=== PATIENT | female | born 1980 | race American Indian/Alaskan Native ===

== ENCOUNTER → 2019-02-17 | Day surgery (SDC) | payer OTHER ==
[~2019-02-17] MED LIST: ADDERALL 30 MG30 MG PO; FENTANYL CITRATE/PF 100MCG/2 ML INJ ONE; GLUCAGON FOR INJ 1 MG VIAL ONE; HYOSCYAMINE SULFATE 0.5 MG/ML INJ ONE; LIDOCAINE HCL 2% LOCAL INJ 5 ML SDV VIAL INJ ONE; MIDAZOLAM HCL 2 MG/2 ML VIAL ONE; PROPOFOL IV EMULSION 10 MG/ML 50 ML VIAL ONE
--- OUTSIDE RECORDS SUMMARY | 2019-02-17 08:37 | XMS REPORT | Clinical Summary ---
Author Author [facility] Organization [facility] Address Unknown Phone Unavailable Care Team Providers Care After School Coordinator Name Role Phone Benton Oliver MD PCP Allergies No Known Allergies Medications End Date Status Medication Sig Dispensed Refills Start Date Active NUVARING 0.12-0.015 mg/24 0.12 mg every 3 hr vaginal ring 28 days. 8 Active dextroamphetamine-ampheta 1 tablet 2 0 mine (ADDERALL) 30 mg (two) times a 8 tablet day. Active cyanocobalamin 1,000 1,000 mcg 3 mcg/mL injection once a week. 8 Active Problems Problem Noted Date Memory loss 04/12/2018 Chronic daily headache 04/12/2018 Chronic migraine without aura without status migrainosus, not intractable 04/12/2018 Paresthesias 04/12/2018 Class 1 obesity due to excess calories without serious comorbidity in adult 04/12/2018 B12 deficiency 04/12/2018 Encounters Care Team Description Date Type Specialty Pedro White MD Intervertebral disc disorder with radiculopathy of lumbosacral region 10/31/2018 Hospital Radiology Encounter Pedro White MD Intervertebral disc disorder with radiculopathy of lumbosacral region (Primary Dx) 10/13/2018 Transcribe Access Orders Alyssia Trinidad MD Paresthesia; Nonintractable headache, unspecified chronicity pattern, unspecified headache type; Cognitive change; Left leg pain 10/09/2018 Hospital Radiology Encounter Alyssia Trinidad MD Paresthesia; Nonintractable headache, unspecified chronicity pattern, unspecified headache type; Cognitive change; Left leg pain 10/03/2018 Hospital Radiology Encounter Alyssia Trinidad MD Neck pain; Paresthesia 10/03/2018 Hospital Radiology Encounter Alyssia Trinidad MD Paresthesia (Primary Dx); Nonintractable headache, unspecified chronicity pattern, unspecified headache type; Cognitive change; Left leg pain 09/13/2018 Transcribe Access Orders Alyssia Trinidad MD Neck pain (Primary Dx); Paresthesia 08/15/2018 Transcribe Access Orders Seema Zavala MD 05/13/2018 Telephone Neurology Haven Melton MD Left cervical radiculopathy; Lumbar radiculopathy 05/12/2018 Procedure visit Neurology Benton Oliver MD Neck pain (Primary Dx); Muscle spasms of lower extremity, unspecified laterality 04/26/2018 Transcribe Access Orders Seema Zavala MD 04/20/2018 Telephone Neurology Seema Zavala MD Memory loss; Chronic daily headache; Chronic migraine without aura without status migrainosus, not intractable 04/18/2018 Hospital Radiology Encounter Seema Zavala MD Memory loss (Primary Dx); B12 deficiency; Chronic daily headache; Chronic migraine without aura without status migrainosus, not intractable; Paresthesias; Class 1 obesity due to excess calories without serious comorbidity with body mass index (BMI) of 31.0 to 31.9 in adult 04/12/2018 Office Visit Neurology after 02/16/2018 Family History Medical History Relation Name Comments Diabetes Father Heart disease Father Hypertension Father Relation Name Status Comments Father Alive Mother Alive Social History Date Tobacco Use Types Packs/Day Years Used Quit: 2007 Former Smoker Smokeless Tobacco: Never Used Alcohol Use Drinks/Week oz/Week Comments No Sex Assigned at Date Recorded Not on file Industry Job Start Date Occupation Not on file Not on file Not on file Travel End Travel History Travel Start No recent travel history available. Last Filed Vital Signs Time Taken Vital Sign Reading 05/12/2018 12:47 PM CDT Blood Pressure 106/74 04/12/2018 1:14 PM CDT Pulse 101 - Temperature - - Respiratory Rate - - Oxygen Saturation - - Inhaled Oxygen - Concentration 05/12/2018 12:47 PM CDT Weight 74.5 kg (164 lb 3.2 oz) 05/12/2018 12:47 PM CDT Height 154.9 cm (5' 1") 05/12/2018 12:47 PM CDT Body Mass Index 31.03 Plan of Treatment Health Maintenance Due Date Last Done Comments CERVICAL CANCER SCREENING 2000 INFLUENZA VACCINE 05/25/2019 Procedures Comments Procedure Name Priority Date/Time Associated Diagnosis CT LUMBAR SPINE WO Routine 10/31/2018 Intervertebral disc CONTRAST 5:20 PM [employer] disorder with radiculopathy of lumbosacral region MRI LUMBAR SPINE WO Routine 10/09/2018 Paresthesia CONTRAST 1:12 PM [employer]LY[employer] Nonintractable headache, unspecified chronicity pattern, unspecified headache type Cognitive change Left leg pain MRI BRAIN W WO CONTRAST Routine 10/03/2018 Paresthesia 7:25 PM [employer]ING [employer]LYST Nonintractable headache, unspecified chronicity pattern, unspecified headache type Cognitive change Left leg pain MRI CERVICAL SPINE W WO Routine 10/03/2018 Neck pain CONTRAST 7:13 PM [employer]ING [employer]LYST Paresthesia ESTIMATED GFR Routine 10/03/2018 5:54 PM [employer]ETING FIN[employer]CIAL ANALYST POC CREATININE Routine 10/03/2018 5:54 PM [employer]ETING FIN[employer]CIAL ANALYST MRI BRAIN WO CONTRAST Routine 04/18/2018 Memory loss 6:11 PM CDT Chronic daily headache Chronic migraine without aura without status migrainosus, not intractable after 02/16/2018 Results * CT Lumbar Spine Wo Contrast (10/31/2018 5:20 PM MARKETING FINANCIAL ANALYST) Narrative Performed At EXAMINATION:CT LUMBAR SPINE WO CONTRAST [facility] CLINICAL HISTORY:M51.17 Intervertebral disc disorders with radiculopathylumbosacral region, INTERVEBRAL DIS DISORDERS W RADICULOPATHY COMPARISON:None. TECHNIQUE: Axial helical CT images throughout the lumbar spine were performed without IV contrast. Sagittal and coronal reformatted images were generated. All CT images were acquired using low-dose technique with automated exposure control. FINDINGS: There is no evidence of acute fracture, subluxation, or dislocation. There is normal lumbar lordosis and alignment. Vertebral bodies are preserved. There is no evidence of paraspinal hematoma. L5-S1 level: There is central large disc protrusion causing moderate severe canal stenosis with severe bilateral lateral recess narrowing him potential compromise of the traversing bilateral S1 nerve roots. There is no foraminal narrowing. Mild disc bulges are appreciated at L4-L5 and L3-L4 levels. Visualized paraspinal soft tissues are unremarkable. IMPRESSION: No acute lumbar spine bony abnormality. Large central disc protrusion at L5-S1 level with associated moderate severe canal stenosis and severe bilateral lateral recess narrowing with potential compromise of the bilateral traversing S1 nerve roots. Further evaluation with MRI of the lumbar spine is recommended. [facility]-[id number] Procedure Note Interface, Radiology Results Incoming - 10/31/2018 8:02 PM MARKETING FINANCIAL ANALYST EXAMINATION: CT LUMBAR SPINE WO CONTRAST CLINICAL HISTORY: M51.17 Intervertebral disc disorders with radiculopathy lumbosacral region, INTERVEBRAL DIS DISORDERS W RADICULOPATHY COMPARISON: None. TECHNIQUE: Axial helical CT images throughout the lumbar spine were performed without IV contrast. Sagittal and coronal reformatted images were generated. All CT images were acquired using low-dose technique with automated exposure control. FINDINGS: There is no evidence of acute fracture, subluxation, or dislocation. There is normal lumbar lordosis and alignment. Vertebral bodies are preserved. There is no evidence of paraspinal hematoma. L5-S1 level: There is central large disc protrusion causing moderate severe canal stenosis with severe bilateral lateral recess narrowing him potential compromise of the traversing bilateral S1 nerve roots. There is no foraminal narrowing. Mild disc bulges are appreciated at L4-L5 and L3-L4 levels. Visualized paraspinal soft tissues are unremarkable. IMPRESSION: No acute lumbar spine bony abnormality. Large central disc protrusion at L5-S1 level with associated moderate severe canal stenosis and severe bilateral lateral recess narrowing with potential compromise of the bilateral traversing S1 nerve roots. Further evaluation with MRI of the lumbar spine is recommended. [facility]-[id number] Performing Organization Address City/State/Zipcode Phone Number [facility] [address] [place] [address] * MRI Lumbar Spine Wo Contrast (10/09/2018 1:12 PM MARKETING FINANCIAL ANALYST) Narrative Performed At EXAMINATION: MRI LUMBAR SPINE WO CONTRAST [facility] CLINICAL HISTORY: R20.2 Paresthesia of skin, R51 Headache, PARASTHEISA OF ARM HEADACHECOGNITIVE CHANGESL LEG PAIN COMPARISON:None TECHNIQUE: Multiplanar multisequence noncontrast enhanced examination was performed of the Lumbar spine. FINDINGS: Vertebral body heights are maintained without acute fracture. No focal significant marrow signal abnormality is appreciated. Soft tissues shows no mass, adenopathy or aneurysm. The partially visualized spinal cord and the conus are unremarkable. Lumbar spine alignment is grossly preserved with normal lordosis without significant subluxation. Axial images through the disc spaces demonstrate the following: L1-L2: No significant posterior disc disease, spinal canal or neural foraminal stenosis. L2-L3: No significant posterior disc disease, spinal canal or neural foraminal stenosis. L3-L4: There is minimal disc bulge and 1 mm retrolisthesis of L3 without stenosis. L4-L5: There is mild disc desiccation with disc bulge and facet hypertrophy with mild narrowing of the thecal sac and lateral recesses. There is minimal indentation of the inferior foramina without stenosis. L5-S1: There is loss of disc height with disc desiccation and a very large posterior central disc protrusion. There is some superior extrusion as well. The AP dimension of the protruded disc fragment measures 9 mm in transverse dimensions 18 mm. The superior-inferior dimension of the protrusion and extrusion measures 12 mm. There is severe narrowing of the thecal sac to 3 mm with flattening of the nerve roots and thecal sac. There is complete effacement of the lateral recesses likely encroaching significantly on the bilateral S1 nerves. Despite the severe canal and lateral recess stenosis there is only mild bilateral foraminal narrowing. Visualized lateral sacrum is intact without acute osseous abnormality IMPRESSION: There is a large posterior disc protrusion at L5-S1 resulting in severe canal lateral recess narrowing with mass effect on the nerve roots, especially the S1 nerves. Recommend surgical consultation. [facility]-[id number] Procedure Note Hm Interface, Radiology Results Incoming - 10/09/2018 1:19 PM [employer]ETING [employer]CIAL ANALYST EXAMINATION: MRI LUMBAR SPINE WO CONTRAST CLINICAL HISTORY: R20.2 Paresthesia of skin, R51 Headache, PARASTHEISA OF ARM HEADACHE COGNITIVE CHANGES L LEG PAIN COMPARISON: None TECHNIQUE: Multiplanar multisequence noncontrast enhanced examination was performed of the Lumbar spine. FINDINGS: Vertebral body heights are maintained without acute fracture. No focal significant marrow signal abnormality is appreciated. Soft tissues shows no mass, adenopathy or aneurysm. The partially visualized spinal cord and the conus are unremarkable. Lumbar spine alignment is grossly preserved with normal lordosis without significant subluxation. Axial images through the disc spaces demonstrate the following: L1-L2: No significant posterior disc disease, spinal canal or neural foraminal stenosis. L2-L3: No significant posterior disc disease, spinal canal or neural foraminal stenosis. L3-L4: There is minimal disc bulge and 1 mm retrolisthesis of L3 without stenosis. L4-L5: There is mild disc desiccation with disc bulge and facet hypertrophy with mild narrowing of the thecal sac and lateral recesses. There is minimal indentation of the inferior foramina without stenosis. L5-S1: There is loss of disc height with disc desiccation and a very large posterior central disc protrusion. There is some superior extrusion as well. The AP dimension of the protruded disc fragment measures 9 mm in transverse dimensions 18 mm. The superior-inferior dimension of the protrusion and extrusion measures 12 mm. There is severe narrowing of the thecal sac to 3 mm with flattening of the nerve roots and thecal sac. There is complete effacement of the lateral recesses likely encroaching significantly on the bilateral S1 nerves. Despite the severe canal and lateral recess stenosis there is only mild bilateral foraminal narrowing. Visualized lateral sacrum is intact without acute osseous abnormality IMPRESSION: There is a large posterior disc protrusion at L5-S1 resulting in severe canal lateral recess narrowing with mass effect on the nerve roots, especially the S1 nerves. Recommend surgical consultation. [facility]-[id number] Performing Organization Address City/State/Zipcode Phone Number [facility] [address] [place] [address] * MRI Brain W Wo Contrast (10/03/2018 7:25 PM MARKETING FIN[employer]CIAL ANALYST) Narrative Performed At EXAMINATION:MRI BRAIN W WO CONTRAST [facility] CLINICAL HISTORY:R20.2 Paresthesia of skin, R51 Headache, PARESTHESIA OF ARMCOGNITIVE CHANGESHEADACHEL LEG PAIN COMPARISON:MRI brain April 18, 2018. FINDINGS: 1. Diffusion images demonstrate no evidence of acute ischemia. 2.Conventional images demonstrate no microvascular white matter changes. There is no volume loss. There is no abnormal contrast enhancement. There is minimal cerebellar tonsillar ectopia which is well within normal limits. 3.There is minimal mucosal thickening in the ethmoid sinus. IMPRESSION: No significant abnormality demonstrated nor change from the prior study. [facility]-[id number] Procedure Note Interface, Radiology Results Incoming - 10/03/2018 7:48 PM MARKETING FIN[employer]CIAL ANALYST EXAMINATION: MRI BRAIN W WO CONTRAST CLINICAL HISTORY: R20.2 Paresthesia of skin, R51 Headache, PARESTHESIA OF ARM COGNITIVE CHANGES HEADACHE L LEG PAIN COMPARISON: MRI brain April 18, 2018. FINDINGS: 1. Diffusion images demonstrate no evidence of acute ischemia. 2. Conventional images demonstrate no microvascular white matter changes. There is no volume loss. There is no abnormal contrast enhancement. There is minimal cerebellar tonsillar ectopia which is well within normal limits. 3. There is minimal mucosal thickening in the ethmoid sinus. IMPRESSION: No significant abnormality demonstrated nor change from the prior study. [id number] Performing Organization Address City/State/Zipcode Phone Number [facility] [address] [place] [address] * MRI Cervical Spine W Wo Contrast (10/03/2018 7:13 PM MARKETING FINANCIAL ANALYST) Narrative Performed At EXAMINATION:MRI CERVICAL SPINE W WO CONTRAST [facility] CLINICAL HISTORY:M54.2 Cervicalgia, R20.2 Paresthesia of skin, PARESTHESIA OF ARM COMPARISON:None. FINDINGS: These study is somewhat compromised because of image degradation related to patient motion. There is however no signal abnormality demonstrated in the spinal cord and there is no abnormal contrast enhancement. There is minimal cervical spondylosis. There is a broad dorsal disc protrusion on the left at C5-6 minimally contacting the ventral surface of the spinal cord. There is a suggestion of slight spinal cord volume loss on the left but there isminimal (10 mm) canal stenosis without cord compression. There is a minimal posterior lateral disc protrusion on the left at C6-7 without the canal stenosis or cord compression. There is minimal extension into the neural foramen on the left. There is no significant foraminal stenosis. There is no evidence of Chiari malformation. IMPRESSION: 1.Suboptimal examination because of image degradation related patient motion. 2.No evidence of a cervical spinal cord lesion. 3.Minimal cervical spondylosis and small disc herniations on the left at C5-6 and C6-7 without significant stenosis. [facility]-[id number] Procedure Note Interface, Radiology Results Incoming - 10/03/2018 8:47 PM MARKETING FINANCIAL ANALYST EXAMINATION: MRI CERVICAL SPINE W WO CONTRAST CLINICAL HISTORY: M54.2 Cervicalgia, R20.2 Paresthesia of skin, PARESTHESIA OF ARM COMPARISON: None. FINDINGS: These study is somewhat compromised because of image degradation related to patient motion. There is however no signal abnormality demonstrated in the spinal cord and there is no abnormal contrast enhancement. There is minimal cervical spondylosis. There is a broad dorsal disc protrusion on the left at C5-6 minimally contacting the ventral surface of the spinal cord. There is a suggestion of slight spinal cord volume loss on the left but there is minimal (10 mm) canal stenosis without cord compression. There is a minimal posterior lateral disc protrusion on the left at C6-7 without the canal stenosis or cord compression. There is minimal extension into the neural foramen on the left. There is no significant foraminal stenosis. There is no evidence of Chiari malformation. IMPRESSION: 1. Suboptimal examination because of image degradation related patient motion. 2. No evidence of a cervical spinal cord lesion. 3. Minimal cervical spondylosis and small disc herniations on the left at C5-6 and C6-7 without significant stenosis. [id number] Performing Organization Address [facility] Phone Number [facility] [address] [place] [address] * Estimated GFR (10/03/2018 5:54 PM MARKETING FINANCIAL ANALYST) Estimated GFR >=90 mL/min/1.73 m2 [facility] Comment: [facility] CatergoryUnitsInte rpretation G1 >=90 Normal or high G2 60-89Mildly decreased [id number] Mildly to moderately decreased [id number] Moderately to severely decreased G4 15-29Severely decreased G5 <15Kidney failure The eGFR was calculated using the Chronic Kidney Disease Epidemiology Collaboration (CKD-EPI) equation. Interpretation is based on recommendations of the National Kidney Foundation-Kidney Disease Outcomes Quality Initiative (NKF-KDOQI) published in 2014. Specimen Blood Performing Organization Address [facility] Phone Number [facility] [address] [place] [address] PATHOLOGY AND GENOMIC MEDICINE [address] * POC creatinine (10/03/2018 5:54 PM MARKETING FINANCIAL ANALYST) POC creatinine 0.8 0.5 - 0.9 mg/dl [facility] Specimen Blood Performing Organization Address [facility] Phone Number [facility] [place] [address] PATHOLOGY AND GENOMIC MEDICINE [address] [place] [address] [facility] * MRI Brain Wo Contrast (04/18/2018 6:11 PM CDT) Narrative Performed At EXAM: MRI BRAIN WO CONTRAST [facility] CLINICAL HISTORY: R41.3 Other amnesia, R51 Headache, Headachechronicnormal neuro exam, Chronic daily headache with increase in frequency. TECHNIQUE: Multiplanar and multisequence MRI imaging of the brain was obtained without contrast. COMPARISON:None. FINDINGS: No diffusion restriction to suggest acute infarct. Parenchymal volume is within normal limits. No acute intracranial hemorrhage, mass, hydrocephalus, or extra-axial fluid collection identified. Although this examination is not optimized for the sella, pituitary is grossly normal in appearance. Midline structures are maintained. The major flow voids in the skull base are identified. Orbits are unremarkable. Paranasal sinuses are clear. Mastoid air cells are normally pneumatized. IMPRESSION: No acute intracranial abnormality identified. [id number] Procedure Note Hm Interface, Radiology Results Incoming - 04/18/2018 6:47 PM CDT EXAM: MRI BRAIN WO CONTRAST CLINICAL HISTORY: R41.3 Other amnesia, R51 Headache, Headache chronic normal neuro exam, Chronic daily headache with increase in frequency. TECHNIQUE: Multiplanar and multisequence MRI imaging of the brain was obtained without contrast. COMPARISON: None. FINDINGS: No diffusion restriction to suggest acute infarct. Parenchymal volume is within normal limits. No acute intracranial hemorrhage, mass, hydrocephalus, or extra-axial fluid collection identified. Although this examination is not optimized for the sella, pituitary is grossly normal in appearance. Midline structures are maintained. The major flow voids in the skull base are identified. Orbits are unremarkable. Paranasal sinuses are clear. Mastoid air cells are normally pneumatized. IMPRESSION: No acute intracranial abnormality identified. [facility]-[id number] Performing Organization Address City/State/Zipcode Phone Number [facility] [address] [place] [address] after 02/16/2018 Insurance Payer Benefit Subscriber ID Type Phone Address Plan / Group AETNA AETNA xxxxxxxxxx HMO HMO,POS,EP O, MC/EC HUMANA HUMANA xxxxxxxxx HMO HMO/POS/EP O/OPEN ACCESS Advance Directives Patient has advance care planning documents on file. For more information, joanna e contact: Shaw Perez [address] [place] [address]
--- NOTE | 2019-02-17 15:44 | Operative Report ---
DATE OF PROCEDURE: 02/17/2019 SURGEON: Pastor Martins MD PROCEDURES: Esophagogastroduodenoscopy with biopsies and colonoscopy with biopsies. INDICATIONS FOR EGD: Upper abdominal pain exacerbated with meals, bloating. INDICATIONS FOR COLONOSCOPY: History of bright red blood per rectum, constipation, brother with ulcerative colitis. MEDICATIONS: The patient was done under MAC, please see anesthesiologist's note. PROCEDURE IN DETAIL: With the patient in left lateral decubitus position flexible fiberoptic Olympus gastroscope was introduced into the esophagus under direct visualization without any difficulty. There was some patchy erythema noted in distal esophagus. Approximately 3 mm sessile lesion was noted in the distal esophagus that was biopsied. There was some focal nodularity noted at the GE junction and that was biopsied. The scope was then advanced with ease into the stomach. Mucosa overlying the antrum and the body revealed some patchy erythema and low-grade to moderate edema and biopsies were obtained and sent to stain for H pylori. Pylorus was of normal contour and shape, it was intubated with ease and the scope was advanced all the way to the second portion of the duodenum. The scope was then withdrawn slowly and biopsies were obtained from the proximal second portion and the duodenal bulb to rule out sprue. The scope was then withdrawn back into the stomach and retroflexed. Mucosa overlying the fundus and cardia appeared to be within normal limits. The scope was then straightened out. The stomach was decompressed. The scope was subsequently withdrawn. The patient tolerated the procedure well. IMPRESSION: 1. Mild distal esophagitis. 2. Approximately 3 mm sessile lesion distal esophagus, biopsied. 3. Focal nodularity, GE junction biopsied. 4. Gastritis, biopsied. Biopsies sent to stain for Helicobacter pylori. 5. Rule out sprue. PLAN: Follow up histology. Initiate Protonix 40 mg one p.o. q.a.m. a.c. PROCEDURE IN DETAIL: The patient was then turned around after adequate lubrication of the anal canal. A flexible fiberoptic Olympus colonoscope was inserted into the rectum with ease and advanced all the way to the cecum. The scope was then withdrawn slowly, mucosa overlying the cecum appeared to be within normal limits. The ileocecal valve was intubated and the scope was advanced into the terminal ileum. Biopsies were obtained. The scope was then withdrawn back into the colon. It was then withdrawn slowly, mucosa overlying the ascending and the transverse and the descending grossly appeared to be within normal limits other than for some minimal scattered diverticular disease. There were some patchy mild inflammatory changes noted in the sigmoid and the rectum and biopsies were obtained. The scope was then retroflexed into the distal rectum. Small internal hemorrhoids were noted, none of which was actively bleeding. The scope was then straightened out, it was subsequently withdrawn. The patient tolerated the procedure well. IMPRESSION: 1. Diverticulosis, minimal scattered. 2. Proctosigmoiditis, patchy mild, biopsies obtained. 3. Internal hemorrhoids, none actively bleeding. PLAN: Follow up histology. Initiate high-fiber, low-fat diet. Start VSL#3 one p.o. daily. Pastor Martins MD [facility] – [place] /[id number] cc: Dr. Kathleen Blanton
== END | disposition home or self-care (01) ==
LOC: OR 08:15
PROVIDERS: ATTEND Internal Medicine Gastroenterology
DX: K29.70 Gastritis, unspecified, without bleeding (principal); K22.8 Other specified diseases of esophagus; K63.89 Other specified diseases of intestine; K59.00 Constipation, unspecified; K57.30 Diverticulosis of large intestine without perforation or abscess without bleeding; K64.8 Other hemorrhoids; F98.8 Other specified behavioral and emotional disorders with onset usually occurring in childhood and adolescence; Z80.0 Family history of malignant neoplasm of digestive organs
CPT/HCPCS: 43239; 45380; 81025; J1610; J1980; J2001; J2250; J2704; 45378